=== PATIENT | male | born 1955 | race African-American/Black ===

== ENCOUNTER → 2023-11-08 | Day surgery (SDC) | payer MEDICARE ==
[2023-11-05 12:22] LABS: BASOPHILS % 0.5 % (0.0-1.0); EOSINOPHILS # (AUTO) 0.2 (0.0-0.4); HEMATOCRIT 45.1 % (38.2-49.6); HEMOGLOBIN 14.9 g/dL (14.0-18.0); LYMPHOCYTES % 34.3 % (18.0-39.1); MEAN CORPUSCULAR HEMOGLOBIN 29.8 pg (28-32); MEAN CORPUSCULAR VOLUME 90.2 fL (81-99); MONOCYTES # (AUTO) 0.5 (0.2-0.8); MONOCYTES % 8.7 % (4.4-11.3); NEUTROPHILS # (AUTO) 3.1 (2.1-6.9); NEUTROPHILS % 53.3 % (38.7-80.0); PLATELET COUNT 203 x10e3/uL (140-360); RED CELL DISTRIBUTION WIDTH 13.5 % (11.7-14.4); WHITE BLOOD COUNT 5.72 x10e3/uL (4.8-10.8)
[2023-11-05 12:37] LABS: ANION GAP 12.9 mmol/L (8-16); CALCIUM 9.7 mg/dL (8.4-10.2); CREATININE, SERUM 1.13 mg/dL (0.72-1.25); POTASSIUM 3.9 mmol/L (3.5-5.1)
[~2023-11-08] MED LIST: CYCLOPENTOLATE HCL 2% OPTH SOLN 2 ML BTL OP ONE; GATIFLOXACIN(OPTH) 5 ML LIQD ONE; LEVOTHYROXINE112 MCG PO; METOPROLOL SUCC50 MG PO; PHENYLEPHRINE HCL 2 ML DROPS ONE; PROPOFOL IV EMULSION 10 MG/ML 20 ML VIAL ONE; ROSUVASTATIN CA20 MG PO; VALSARTAN-HCTZ1 EAC2 PO
[2023-11-08] MEDS: LACTATED RINGER'S 1,000 ML ONE (06:25)
[2023-11-08 08:00] VITALS: TEMP 97.2
[2023-11-08 08:15] VITALS: BP 124/78; PULSE 52; RESP 16; O2SAT 98
== END | disposition home or self-care (01) ==
LOC: OR 05:08
PROVIDERS: ATTEND Ophthalmology
DX: H25.12 Age-related nuclear cataract, left eye (principal); I10 Essential (primary) hypertension; Z01.810 Encounter for preprocedural cardiovascular examination; Z01.812 Encounter for preprocedural laboratory examination; Z79.899 Other long term (current) drug therapy
CPT/HCPCS: 36415; 66984; 80048; 85025; 93005; J2704; J7121; V2632